=== PATIENT | female | born 1945 | race Caucasian/White ===

== ENCOUNTER 2025-07-03 10:07 | Outpatient (REF) | payer MEDICARE, SELFPAY ==
--- NOTE | 2025-07-03 10:13 | EMG_ITS ---
Patient Complaints: Paresthesia of skin, bilateral upper extremity Procedure done: NCV / EMG Bilateral median and ulnar motor and sensory studies were performed bilateral radial sensory studies were performed an EMG needle examination was performed. 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
--- OUTSIDE RECORDS SUMMARY | 2025-07-03 10:50 | XMS_ITS | Encounter Summary ---
Author Organization [facility] Address [address] [place] [address] Phone Care Team Providers Care Residential Therapist Name Role Phone Dianne Pepe MD Primary Care Provid er Encounter Details Date Type Department Care Team (Late st Contact Info) Description 11/16/2024 Documentation Only [facility] [address] [place] [address] Kofi Kat DO [address] [place] [address] Social History Tobacco Use Types Packs/Day Years Used Date Smoking Tobacco: Former Alcohol Use Standard Drinks/Week Comments Yes 0 (1 standard drink = 0.6 oz pure alcohol) Alcoholic Drinks/day: Occasional social drink Comments Unknown Sex and Gender Information Value Date Recorded Sex Assigned at Not on file Legal Sex Female 4:34 PM EST Gender Identity Not on file Sexual Orientation Not on file documented as of this encounter Plan of Treatment Upcoming Encounters Date Type Department Care Team (Late st Contact Info) Description 12/26/2025 2:15 PM EST Office Visit [facility] [address] [place] [address] Kofi Kat DO [address] [place] [address] documented as of this encounter Visit Diagnoses Not on filedocumented in this encounter Care Teams Residential Therapist Relationship Specialty Start Date End Date Dianne Pepe MD [address] PCP - General 09/12/19 documented as of this encounter
--- OUTSIDE RECORDS SUMMARY | 2025-07-03 10:50 | XMS_ITS | Clinical Summary ---
Author Organization [facility] [place], Address [address] [place] [address] [place] [address] Phone Care Team Providers Care Wafer Abrading Machine Tender Name Role Phone Dianne Pepe MD Primary Care Provid er Allergies Active Allergy Reactions Criticality Noted Date Comments Sulfa Antibiotics Hives 07/08/2017 Medications Acetaminophen 325 MG capsule 650 mg 018 Active Zoster Vac Recomb Adjuvanted (Shingrix) 50 MCG/0.5ML reconstituted suspension Shingrix (PF) 50 mcg/0.5 mL intramuscular suspension, kit VACCINATION ADMINISTERED BY PHARMACIST Active atorvastatin (LIPITOR) 10 MG tablet Take 10 mg by mouth 1 (one) time each day 023 Active amLODIPine (NORVASC) 5 MG tabletIndication s:Stage 3a chronic kidney disease (HCC),Renal tubular acidosis in Sjogren syndrome (HCC),Cold autoimmune hemolytic anemia (HCC),Acquired absence of kidney Take 1 tablet (5 mg total) by mouth 1 (one) time each day 90 tablet 3 025 2025 Active fluticasone (FLONASE) 50 MCG/ACT nasal spray Administer 1 spray into each nostril 1 (one) time each day 2024 Discontinued folic acid (FOLVITE) 800 MCG tablet Take 400 mcg by mouth 1 (one) time each day 2024 Discontinued sodium bicarbonate 650 MG tablet TAKE ONE TABLET BY MOUTH TWICE A DAY 60 tablet 3 020 2024 Discontinued famotidine (PEPCID) 20 MG tablet famotidine 20 mg tablet 2024 Discontinued linaCLOtide (Linzess) 290 MCG capsule Take 290 mg by mouth 1 (one) time each day 2024 Discontinued amLODIPine (NORVASC) 2.5 MG tabletIndication s:Stage 3a chronic kidney disease (HCC),Renal tubular acidosis in Sjogren syndrome (HCC),Monoclonal gammopathy (clinical),Acqui red absence of kidney Take 1 tablet (2.5 mg total) by mouth 1 (one) time each day 90 tablet 3 024 2024 Discontinued amLODIPine (NORVASC) 5 MG tabletIndication s:Stage 3a chronic kidney disease (HCC),Renal tubular acidosis in Sjogren syndrome (HCC),Cold autoimmune hemolytic anemia (HCC),Acquired absence of kidney Take 2 tablets (10 mg total) by mouth 1 (one) time each day 180 tablet 3 025 2024 Discontinued Active Problems Problem Noted Date Diagnosed Date History of calculus of kidney 01/27/2023 Acquired absence of kidney 05/20/2022 Stage 3a chronic kidney disease 11/13/2019 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 Vitamin D deficiency 05/31/2018 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 Monoclonal gammopathy (clinical) 10/29/2017 Overview (05/14/2020): IgM Pratt Hydronephrosis Anti-nuclear factor detected Renal tubular acidosis in Sjogren syndrome Encounters Date Type Department Care Team Description 06/20/2025 1:45 PM EDT Office [facility] [address] [place] [address] Kofi Kat DO Stage 3a chronic kidney disease (HCC) (Primary Dx); Renal tubular acidosis in Sjogren syndrome (HCC); Cold autoimmune hemolytic anemia (HCC); Acquired absence of kidney from Last 3 Months Immunizations Immunization Administration Dates Next Due Influenza (IM) Preservative Free 08/22/2014 Influenza Split High Dose Pr eservative Free IM 07/19/2020,08/25/2019,08/13/2017,07/27,08/27/2011 Influenza TIV (IM) 09/07/2013, 2,07/09/2011,08/13,09/08/2008,08/18/2007 Influenza Vaccine, Quadrival ent, Adjuvanted 07/21/2020 Influenza, Quadrivalent, Pre servative Free 09/18/2015 Influenza, Quadrivalent, Wit h Preservative 08/05/2018 Influenza, Unspecified 08/06/2021,07/09/2021 Moderna SARS-COV-2 12/24/2020 Pfizer SARS-COV-2 06/24/2021, 1,12/24/2020,12/24 Pneumococcal Conjugate 13-Valent 01/21/2015 Pneumococcal Polysaccharide 10/21/2011 Shingrix 05/29/2020 Td 01/17/2021,01/06/2021,07/05/2006 Tdap 04/18/2014 Zoster 05/29/2020, 0,01/09/2020,11/08 Family History Medical History Relation Comments Hypertension Father Hypertension Mother Breast cancer Mother's Sister Relation Status Comments Father Mother Unknown Mother's Sister Social History Tobacco Use Types Packs/Day Years Used Date Smoking Tobacco: Former Alcohol Use Standard Drinks/Week Comments Yes 0 (1 standard drink = 0.6 oz pure alcohol) Alcoholic Drinks/day: Occasional social drink Comments Unknown Sex and Gender Information Value Date Recorded Sex Assigned at Not on file Legal Sex Female 4:34 PM EST Gender Identity Not on file Sexual Orientation Not on file Last Filed Vital Signs Vital Sign Reading Time Taken Comments Blood Pressure 138/72 06/20/2025 2:05 PM EDT Pulse 78 06/20/2025 2:05 PM EDT Temperature - - Respiratory Rate 22 10/25/2017 12:00 PM EST Oxygen Saturation - - Inhaled Oxygen Concentration - - Weight 74 kg (163 lb 2.3 oz) 06/01/2019 12:00 PM EDT Height 157.5 cm (5' 2 ) 06/01/2019 12:00 PM EDT Body Mass Index 29.84 06/01/2019 12:00 PM EDT Plan of Treatment Upcoming Encounters Date Type Department Care Team (Late st Contact Info) Description 12/26/2025 2:15 PM EST Office Visit [facility] [place], [address] [place] [address] Kofi Kat, DO [address] [place] [address] Health Maintenance Due Date Last Done Comments Influenza Vaccine (#1) 2025 4, 08/13/2023, 08/06/2021, Additional history exists Pneumococcal Vaccine: 50+ Years Completed 01/21/2015, 10/21/2011 Pneumococcal Vaccine: Peds (0 to 5 Years) and At-Risk Patients (6 to 49 Years) Discontinued 01/21/2015, 10/21/2011 Hepatitis B Vaccine Aged Out No longe r eligible based on patient's age to complete this topic Procedures Procedure Name Priority Date/Time Associated Diagnosis Comments RENAL FUNCTION PANEL Routine 06/13/2025 10:25 AM EDT from Last 3 Months Results * (ABNORMAL) Renal Function Panel (06/13/2025 10:25 AM EDT) Glucose 86 70 - 99 mg/dL [facility] BUN 25 8 - 27 mg/dL [facility] Creatinine 1.24(H) 0.57 - 1.00 mg/dL [facility] eGFR CKD-EPI CR 2020 44(L) >59 mL/min/1.7 3 [facility] BUN/Creatinine Ratio 20 12 - 28 [facility] Sodium 139 134 - 144 mmol/L [facility] Potassium 4.9 3.5 - 5.2 mmol/L [facility] Chloride 103 96 - 106 mmol/L [facility] Bicarbonate (CO2) 19(L) 20 - 29 mmol/L [facility] Calcium 9.9 8.7 - 10.3 mg/dL [facility] Albumin 4.2 3.8 - 4.8 g/dL [facility] Phosphorus 3.0 3.0 - 4.3 mg/dL [facility] 06/13/2025 10:2 5 AM EDT 06/13/2025 us Kofi Kat DO LAB BLOOD ORDERABLES Final Resu lt [facility] [address] [place] [address] from Last 3 Months Insurance [facility] Care Teams Wafer Abrading Machine Tender Relationship Specialty Start Date End Date Dianne Pepe MD [address] PCP - General 09/12/19
--- OUTSIDE RECORDS SUMMARY | 2025-07-03 10:50 | XMS_ITS | Clinical Summary ---
Author Organization [facility] Address [address] [place] [address] Phone Care Team Providers Care Digital Media Manager Name Role Phone Dianne Pepe MD Primary Care Prov ider SaraPrakash MD Unavailable [phone] Allergies Active Allergy Reactions Criticality Noted Date Comments Penicillins 01/26/2019 Sulfa (Sulfonamide Antibiotics) Hives High 01/07 Medications No known medications Active Problems No known active problems Immunizations Immunization Administration Dates Next Due COVID-19 (Pre-08/30) Pfizer Vaccine, mRNA, PF ,12/24/2020 Social History Tobacco Use Types Packs/Day Years Used Date Smoking Tobacco: Never Assessed Education Answer Date Recorded Are you interested in more education? Not on sylvester e 03/05/2023 Are you concerned about learning? Not on file 03/05/2023 No 03/05/2023 No 03/05/2023 Digital Access Answer Date Recorded No 04/06/2023 No 04/06/2023 No 04/06/2023 Reliable internet access at home? Not on file 04/06/2023 Device with a working camera? Not on file Comments Unknown Sex and Gender Information Value Date Recorded Sex Assigned at Not on file Legal Sex Female 11:40 AM EST Gender Identity Not on file Sexual Orientation Not on file Last Filed Vital Signs Vital Sign Reading Time Taken Comments Blood Pressure 156/66 01/26/2019 9:45 AM EDT Pulse 107 01/26/2019 9:45 AM EDT Temperature 36.6 C (97.9 F) 01/26/2019 9:45 AM EDT Respiratory Rate 18 01/26/2019 9:45 AM EDT Oxygen Saturation 96% 01/26/2019 9:45 AM EDT Inhaled Oxygen Concentration - - Weight 73.9 kg (162 lb 14.7 oz) 01/26/2019 9:45 AM EDT Height 156.6 cm (5' 1.65 ) 01/26/2019 9:45 AM ED T Body Mass Index 30.13 01/26/2019 9:45 AM EDT Plan of Treatment Health Maintenance Due Date Last Done Comments LIPID PANEL 1946 DEPRESSION SCREENING 1958 SMOKING Hx and SMOKELESS TOBACCO SCREENING 1959 HEPATITIS C SCREENING 1964 OSTEOPOROSIS SCREENING INITIAL (ONE-TIME) 2011 RSV VACCINE (1 - 1-dose 75+ series) 2021 COVID-19 VACCINE ( season) 2024 01/15/2021, 12/24/2020 INFLUENZA VACCINE (#1) 2025 , 08/25/2019, 08/05/2018, Additional history exists Adult Td,Tdap Booster 01/17/2031 01/17/2021 , 04/18/2014, 07/05/2006 PNEUMOCOCCAL VACCINES (50+ years) Completed 01/21/2015, 10/21/2011 ZOSTER VACCINES Completed 05/29/2020, 01/2020, 11/08/2008 HEPATITIS A VACCINES Aged Out No long er eligible based on patient's age to complete this topic HIB VACCINES Aged Out No longer eligi ble based on patient's age to complete this topic MENINGOCOCCAL VACCINES (ACWY) Aged Out No longer eligible based on patient's age to complete this topic MENINGOCOCCAL VACCINES (B) Aged Out N o longer eligible based on patient's age to complete this topic Medical Devices Not on file Insurance [place] P[place] BLUE REPLACEMENT MEDICARE PPO BLUE REPLACEMENT MEDICARE PPO BLUE REPLACEMENT MEDICARE PPO BLUE REPLACEMENT MEDICARE PPO BLUE REPLACEMENT MEDICARE PPO BLUE REPLACEMENT MEDICARE PPO BLUE REPLACEMENT [place] [address] MEDICARE PPO BLUE REPLACEMENT [facility] MEDICARE PPO BLUE REPLACEMENT Care Teams Digital Media Manager Relationship Specialty Start Date End Date Dianne Pepe MD [address] [place] [phone] PCP - General Internal Medicine 12/06/18 Prakash Ruiz MD [address] [place] [address] [phone] [email or web address] Referring Physician Hematology 12/06/18 Additional Source Comments The information contained in this document represents components of the legal health record. It is not the complete legal health record.[facility]
--- OUTSIDE RECORDS SUMMARY | 2025-07-03 10:50 | XMS_ITS | Clinical Summary ---
Author Organization [employer] [facility] Address [address] [place] [address] Care Team Providers Care Battery Container Inspector Name Role Phone Michelle Gaspar MD Primary Care Provider Surgical History Surgery Date Site/Laterality Comments SECTION PROCEDURE: HISTORICAL COLONOSCOPY 11/24/2017 PROCEDURE: HISTORICAL COLONOSCOPY; COMMENT: negative OTHER SURGICAL HISTORY 09/29/2021 PROCEDURE: HISTORICAL CA BASAL CELL; COMMENT: right cheek SECTION PROCEDURE: SECTION TONSILLECTOMY PROCEDURE:TONSILLECTOMY ADENOIDECTOMY PROCEDURE:ADENOIDECTOMY Medical History Medical History Date Comments Hypercholesterolemia DX:Hypercho lesterolemia Anxiety DX:Anxiety Hypertension DX:Hypertension Hydronephrosis DX:Hydronephrosi s Osteopenia DX:Osteopenia Idiopathic chronic cold aggl utinin disease ([facility] V24, [facility] V28) DX:Idiopathic chronic cold agglutinin disease (HCC) Diverticulosis DX:Diverticulosi s 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[facility]/HCC V24, [facility] V28) 10/29/2017 DX:Autoimmune hemolytic anem ia (HCC) Monoclonal gammopathy 10/29/2017 DX:Monoclo nal gammopathy CKD (chronic kidney disease) stage 3, GFR 30-59 ml/min (CMS/HCC V24, CMS/HCC V28) 11/13/2019 DX:CKD (chroni c kidney disease) stage 3, GFR 30-59 ml/min ([facility]) Sjogren's syndrome ([facility] V24) 08/17/2018 DX:Sjogren's syndrome (HCC) Allergic rhinitis DX:Allergic rh initis IBS (irritable bowel syndrome) 04/18/2014 D X:IBS (irritable bowel syndrome) Anemia DX:Anemia Hypertension DX:Hypertension Anxiety DX:Anxiety Hyperlipidemia DX:Hyperlipidemi a Allergic rhinitis DX:Allergic rh initis IBS (irritable bowel syndrome) D X:IBS (irritable bowel syndrome) Vitamin D deficiency DX:Vitamin D deficiency Osteopenia DX:Osteopenia Hypercholesterolemia DX:Hypercho lesterolemia Family History Medical History Relation Name Comments Other: heart disease Brother Other: epilepsy Daughter Abdominal Aortic Anuerysm (AAA) Father Hypertension Father Cancer Father's Sister breast Diabetes Maternal Grandfather Hypertension Mother Other: congestive heart failure Mother Other: epilepsy Son Relation Name Status Comments Brother Daughter Alive Father Father's Sister Maternal Grandfather Mother Son Alive Social History Tobacco Use Types Packs/Day Years Used Date Smoking Tobacco: Former Cigarettes 0.2 5 0 1965 - 1970 Smokeless Tobacco: Never Alcohol Use Standard Drinks/Week Comments No 4 (1 standard drink = 0.6 oz pur e alcohol) Comments Unknown Sex and Gender Information Value Date Recorded Sex Assigned at Not on file Legal Sex Female 12:04 PM EST Gender Identity Not on file Sexual Orientation Not on file Obstetrics History Last Filed Vital Signs Vital Sign Reading Time Taken Comments Blood Pressure 126/72 10/13/2022 2:07 PM EST Sitting L Arm Pulse 89 10/13/2022 2:07 PM EST Temperature - - Respiratory Rate - - Oxygen Saturation - - Inhaled Oxygen Concentration - - Weight 63.1 kg (139 lb 1.6 oz) 10/13/2022 2:07 PM EST Height 157.5 cm (5' 2 ) 10/13/2022 2:07 PM EST Body Mass Index 25.44 10/13/2022 2:07 PM EST Plan of Treatment Health Maintenance Due Date Last Done Comments DTaP,Tdap,and Td Vaccines (1 - Tdap) 1965 Pneumococcal Vaccine: 50+ Ye ars (1 of 1 - PCV) 1996 Zoster Vaccines (1 of 2) 1996 RSV Immunization Adult Patie nts (1 - 1-dose 75+ series) 2021 Cholesterol Screening (Lipid Panel) 10/15/2022 Falls Risk Assessment 10/15/2022 Hepatitis C Screening 10/15/2022 Osteoporosis Screening (Bone Density Screening) 10/15/2022 Social Influencers of Health Screening 10/15/2022 Hypertension/CHF/CAD Annual BMP Blood Test 10/23/2022 COVID-19 Vaccine ( - 2023-2 5 season) 2024 Depression Screening 11/08/2024 Influenza Vaccine (#1) 2025 HIB Vaccines Aged Out No longer eligi ble based on patient's age to complete this topic HPV Vaccines Aged Out No longer eligi ble based on patient's age to complete this topic Hepatitis A Vaccines Aged Out No long er eligible based on patient's age to complete this topic Hepatitis B Vaccines Aged Out No long er eligible based on patient's age to complete this topic IPV Vaccines Aged Out No longer eligi ble based on patient's age to complete this topic MMR Vaccines Aged Out No longer eligi ble based on patient's age to complete this topic Meningococcal ACWY Vaccine Aged Out N o longer eligible based on patient's age to complete this topic Meningococcal B Vaccine Aged Out No l onger eligible based on patient's age to complete this topic RSV Immunization Patients Un jimmy 20 months Aged Out No longer eligible b ased on patient's age to complete this topic Varicella Vaccines Aged Out No longer eligible based on patient's age to complete this topic Advance Directives Documents on File Type Date Recorded Patient Infant Nanny Expl anation Health Care Decision (hx) 09/23/2018 AD SALOMON DIRECTIVE Health Care Decision (hx) 09/23/2018 AD SALOMON DIRECTIVE Health Care Decision (hx) 09/23/2018 AD SALOMON DIRECTIVE Care Teams Battery Container Inspector Relationship Specialty Start Date End Date Michelle Gaspar MD [address] [phone] PCP - General 05/30/23
--- OUTSIDE RECORDS SUMMARY | 2025-07-03 10:51 | XMS_ITS | Encounter Summary ---
Author Organization [facility] Address [address] [place] [address] Phone Care Team Providers Care X Ray Operator Name Role Phone Dianne Pepe MD Primary Care Provid er Encounter Details Date Type Department Care Team (Late st Contact Info) Description 12/24/2022 Documentation Only [facility] [address] [place] [address] Kofi Kat DO [address] [place] [address] Social History Tobacco Use Types [...] Visit [facility] [address] [place] [address] Kofi Kat DO [address] [place] [address] documented as of this encounter Visit Diagnoses Not on filedocumented in this encounter Care Teams X Ray Operator Relationship Specialty Start Date End Date Dianne Pepe MD [address] PCP - General 09/12/19 documented as of this encounter
--- OUTSIDE RECORDS SUMMARY | 2025-07-03 10:51 | XMS_ITS | Patient Health Record ---
Author Organization [facility] Address [address] [place] [address] Care Team Providers Care Scholarship Counselor Name Role Phone Arnav Reyez MD, Dianne Gonzalez Primary Care Prov ider Unavailable Benjamín Lloyd Unavailable [phone] Allergies Allergen (clinical drug ingredient) Drug/Non Drug Allergy documented on EMR Reaction Allergy Type Onset Date Status sulfa Unknown Drug Allergy Active Penicillin Unknown Drug Allergy Active Reason For Referral No Information Medications Medication SIG (Take, Route, Frequency, Duration) Notes Start Date End Date Status Lisinopril 2.5 MG 1 tablet Orally Once a day Active ZyrTEC Active Atorvastatin Calcium 20 MG 1 tablet Oral ly Once a day Active Fluticasone Propionate 50 MCG/ACT 1 spray in each nostril Nasally Once a day Active Plan Of Treatment No Information Insurance Providers Payer Name Payer Address Payer Phone Subscriber Number Group Number Insured Name Patient Relationship to Insured Coverage Start Date Coverage End Date [employer] [place] [employer] [address] [place] [address] [phone] [id number] Janet Krishnamurthy Self - patient is the insured Medical (General) History Medical History History ICD Code Hypercholesterolemia hyperlipidemia Anxiety Hypertension Allergic rhinitis Irritable bowel syndrome Menopause Vitamin D deficiency Back pain Osteopenia hydronephrosis Surgical History Surgery Date(Month/Year) adenoidectomy section tonsillectomy
--- OUTSIDE RECORDS SUMMARY | 2025-07-03 10:51 | XMS_ITS | Clinical Summary ---
Author Organization [facility] Address [address] [place] [address] Care Team Providers Care Orthopedic Radiologic Technologist Name Role Phone Dianne Pepe MD Primary Care Prov ider Allergies Active Allergy Reactions Criticality Noted Date Comments Ciprofloxacin Other (See Comments) 08/25/2018 Nitrofurantoin 08/27/2021 Sulfa Antibiotics Hives 07/08/2017 Medications Medication Sig Dispensed Refills Start Date End Date Status fluticasone (FLONASE) 50 MCG/ACT nasal spray spray/apply 1 spray in each nostril as needed. 0 Active sodium bicarbonate 325 MG tablet Take 650 mg by mouth 2 (two) times a day. 0 Active cholecalciferol (VITAMIN D3) 1000 units tablet Take 1,000 Units by mouth daily. 0 Active folic acid (FOLVITE) 800 MCG tablet Take 800 mcg by mouth daily. 0 Active carboxymethylcellulos e (EQ RESTORE TEARS) 0.5 % SOLN 1 drop 4 (four) times a day. 0 Active Dentifrices (FLUORIDE TOOTHPASTE DT) Place onto teeth. 0 Act robbin Cetylpyridinium Chloride (ORAL RINSE MT)Indications:Hydris Use as directed in the mouth or throat. 0 Active Xylitol (XYLIMELTS) 500 MG DISK Use as directed in the mouth or throat. 0 Active vitamin C (ASCORBIC ACID) 250 MG tablet Take 500 mg by mouth daily. 0 Active estradiol (ESTRACE VAGINAL) 0.1 MG/GM vaginal cream Place 2 g vaginally daily. 0 Active Turmeric 500 MG CAPS Take by mouth daily. 0 Active Calcium Carbonate (CALCIUM 500 PO) Take by mouth. 0 Acti ve famotidine (PEPCID) 20 MG tablet Take 20 mg by mouth 2 (two) times a day. 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 Monoclonal gammopathy 10/29/2017 Anemia 07/20/2017 Irritable bowel syndrome 04/18/2014 Hyperlipidemia 04/18/2014 Hydronephrosis 04/18/2014 Essential hypertension 04/18/2014 Family History Medical History Relation Name Comments Hypertension Father Diabetes Maternal Grandfather Hypertension Mother Cancer Paternal Aunt breast Relation Name Status Comments Father Maternal Grandfather Mother Paternal Aunt Social History Tobacco Use Types Packs/Day Years Used Date Smoking Tobacco: Former Smokeless Tobacco: Never Alcohol Use Standard Drinks/Week Comments No 0 (1 standard drink = 0.6 oz pur e alcohol) Sex and Gender Information Value Date Recorded Sex Assigned at Not on file Gender Identity Not on file Sexual Orientation Not on file Last Filed Vital Signs Vital Sign Reading Time Taken Comments Blood Pressure 158/74 03/27/2021 10:40 AM EDT Pulse 70 03/27/2021 10:40 AM EDT Temperature 36.2 C (97.1 F) 03/27/2021 10:40 AM EDT Respiratory Rate - - Oxygen Saturation 98% 03/27/2021 10:40 AM EDT Inhaled Oxygen Concentration - - Weight 74.4 kg (164 lb) 03/27/2021 10:40 AM EDT Height 157.5 cm (5' 2 ) 03/27/2021 10:40 AM EDT Body Mass Index 30 03/27/2021 10:40 AM EDT Plan of Treatment Health Maintenance Due Date Last Done Comments Hepatitis C Screening 1945 Depression Screening 1958 Preventative Health Evaluation 1964 Fall Risk Assessment 2011 Osteoporosis Screening (DEXA Scan) 2011 Shingrix-Zoster Vaccine (2 of 2) 07/24/2020 05/29/2020 RSV Adult > 60+ Yrs or (1 - 1-dose 75+ series) 2021 COVID-19 Vaccine ( - season) 2024 06/24/2021, 01/15/2021, 12/24/2020 Influenza Vaccine (#1) 2025 , 07/21/2020, 07/19/2020, Additional history exists DTap / Tdap / Td (4 - Td or Tdap) 01/17/2031 01/17/2021, 01/06/2021, 04/18/2014, Additional history exists Pneumococcal Vaccine Completed 01/21/2015, 10/21/20 11 Hepatitis B Vaccines Aged Out No long er eligible based on patient's age to complete this topic RSV Ped < 20 months Aged Out No longe r eligible based on patient's age to complete this topic Care Teams Orthopedic Radiologic Technologist Relationship Specialty Start Date End Date Dianne Pepe MD [id number] [place] [address] PCP - General Internal Medicine 07/09/17
--- OUTSIDE RECORDS SUMMARY | 2025-07-03 10:51 | XMS_ITS | Encounter Summary ---
Author Organization [facility] Address [address] [place] [address] Phone Care Team Providers Care Case Maker Name Role Phone Dianne Pepe MD Primary Care Provid er Encounter Details Date Type Department Care Team (Late st Contact Info) Description 01/28/2024 Documentation Only [facility] [address] [place] [address] Kofi Kat DO [address] [place] [address] Social History Tobacco Use Types [...] Visit [facility] [address] [place] [address] Kofi Kat DO [address] [place] [address] documented as of this encounter Visit Diagnoses Not on filedocumented in this encounter Care Teams Case Maker Relationship Specialty Start Date End Date Dianne Pepe MD [id number] PCP - General 09/12/19 documented as of this encounter
--- OUTSIDE RECORDS SUMMARY | 2025-07-03 10:51 | XMS_ITS | Encounter Summary ---
Author Organization [facility] Address [address] [place] [address] Phone Care Team Providers Care Director Dermatology Name Role Phone Dianne Pepe MD Primary Care Provid er Encounter Details Date Type Department Care Team (Late st Contact Info) Description 08/03/2024 Documentation Only [facility] [address] [place] [address] Kofi Kat DO [address] [facility] [address] [place] [address] Social History Tobacco Use Types [...] Visit [facility] [address] [place] [address] Kofi Kat DO [address] [facility] [address] [place] [address] documented as of this encounter Visit Diagnoses Not on filedocumented in this encounter Care Teams Director Dermatology Relationship Specialty Start Date End Date Dianne Pepe MD [phone] PCP - General 09/12/19 documented as of this encounter
== END 2025-07-03 10:08 | disposition home or self-care (01) ==
LOC: HO.NEURO 10:07
PROVIDERS: PCP Student in an Organized Health Care Education/Training Program; Visit Provider Student in an Organized Health Care Education/Training Program
DX: G56.13 Other lesions of median nerve, bilateral upper limbs (principal); R20.2 Paresthesia of skin
CPT/HCPCS: 95886; 95911

== ENCOUNTER → 2025-07-03 10:13 | Outpatient (BNV) | payer MEDICARE, SELFPAY | PROVIDERS: PCP Student in an Organized Health Care Education/Training Program; Visit Provider Psychiatry & Neurology Neurology | DX: G56.03 Carpal tunnel syndrome, bilateral upper limbs (principal) | CPT/HCPCS: 95886; 95911 ==